=== PATIENT | female | born 1960 | race Caucasian/White ===

== ENCOUNTER 2023-11-19 14:28 | Emergency (ER) | payer OTHER ==
[~2023-11-19] VITALS: Ht 144.8 cm; Wt 57.0 kg
[2023-11-19] MEDS: famotidine/PF 10 mg/ml inj IV ONE (16:02)
[2023-11-19] MEDS: methylPREDNISolone sod succ 125mg/2ml vial IV ONE (16:02)
[2023-11-19] MEDS: diphenhydrAMINE 50 mg/ml inj IV ONE (16:02)
[2023-11-19] MEDS: normal saline 1000ml 1,000 ML IVB ONE (16:26)
[2023-11-19] MEDS: ondansetron/PF 4mg/2ml inj IV ONE (16:59)
[2023-11-19 18:24] VITALS: BP 124/72; PULSE 84; RESP 18; TEMP 98.4; O2SAT 99
== END 2023-11-19 18:24 | disposition home or self-care (01) ==
LOC: ER 14:29
DX: T78.49XA Other allergy, initial encounter (principal); Z88.5 Allergy status to narcotic agent; X58.XXXA Exposure to other specified factors, initial encounter
CPT/HCPCS: 96374; 96375; 99284; J1200; J2405; J2919; J3490; J7030